=== PATIENT | female | born 1990 | race Caucasian/White ===

== ENCOUNTER 2018-12-06 14:47 | Emergency (ER) | payer MEDICAID ==
[~2018-12-06] VITALS: Ht 160 cm; Wt 47.2 kg
[2018-12-06 14:55] VITALS: BP 107/73
--- NOTE | 2018-12-06 15:15 | NUR ---
PT REPORTS SYNCOPAL EPISODE TWO DAYS AGO, FALLING HITTING HER HEAD AND RIGHT SHOULDER. FRIEND AT BEDSIDE REPORTS HE HEARD HER FALL AND SHE WAS ABOUT FOR LESS THAN A MINUTE. PT HAS HX OF SAME SINCE MIDDLE SCHOOL AND WAS TOLD TO TAKE SALT TABLETS. PT REPORTS EATING AND DRINKING NORMAL.
[2018-12-06 15:33] LABS: BASOPHILS # (AUTO) 0.02 x10^3/uL (0-0.1); BASOPHILS % (AUTO) 0 % (0-1); EOSINOPHILS # (AUTO) 0.08 x10^3/uL (0-0.4); EOSINOPHILS % (AUTO) 1 % (1-7); LYMPHOCYTES # (AUTO) 1.95 x10^3/uL (1-3.4); LYMPHOCYTES % (AUTO) 23 % (22-44); MD NO; MEAN CORPUSCULAR HEMOGLOBIN 29.5 pg (27.0-34.8); MEAN CORPUSCULAR HGB CONC 32.2 g/dL (32.4-35.8); MEAN CORPUSCULAR VOLUME 91.6 fL (80-100); MEAN PLATELET VOLUME 8.9 fL (7.4-10.4); MONOCYTES # (AUTO) 0.67 x10^3/uL (0.2-0.8); MONOCYTES % (AUTO) 8 % (2-9); NEUTROPHILS # (AUTO) 5.86 x10^3/uL (1.8-6.8); NEUTROPHILS % (AUTO) 68 % (42-75); PLATELET COUNT 166 x10^3/uL (130-400); RED BLOOD COUNT 4.15 x10^6/uL (3.82-5.3); RED CELL DISTRIBUTION WIDTH 13.7 % (9.6-15.2)
[2018-12-06 15:43] LABS: ALBUMIN 3.8 g/dL (3.4-5.0); ANION GAP 6 mmol/L (5-15); CALCIUM 8.6 mg/dL (8.5-10.1); CHLORIDE 109 mmol/L (98-107)
== END 2018-12-06 16:34 | disposition home or self-care (01) ==
LOC: ED 16:05
DX: R55 Syncope and collapse (principal); R53.1 Weakness
CPT/HCPCS: 36415; 80048; 82040; 84703; 85025; 93005; 99284